=== PATIENT | female | born 1970 ===

== ENCOUNTER 2023-06-09 11:43 | Day surgery (SDC) | payer OTHER ==
[~2023-06-09 11:43] MED LIST: BETAPACE120 MG PO; FARXIGA10 MG PO; GLUMETZA1000 MG PO; GRALISE600 MG PO; KAPSPARGO SPRI100 MG PO; LANOXIN125 MCG PO; LASIX40 MG PO; LEVOTHYROXINE25 MC2 PO; LIPITOR40 M1 PO; LOREEV XR2 MG PO; RIZATRIPTAN10 M1 PO
[2023-06-09] MEDS ORDERED: PERCOCET 5-3251 EACH PO (14:41)
[2023-06-09] MEDS ORDERED: NEURONTIN300 MG PO (14:41)
[2023-06-09] MEDS ORDERED: COLACE100 MG PO (14:41)
== END 2023-06-09 18:25 | disposition home or self-care (01) ==
LOC: CIR.AMB 11:43
PROVIDERS: ATTEND Surgery
DX: K62.5 Hemorrhage of anus and rectum (principal); K64.2 Third degree hemorrhoids; K64.4 Residual hemorrhoidal skin tags; K62.89 Other specified diseases of anus and rectum; D64.9 Anemia, unspecified; Z20.822 Contact with and (suspected) exposure to COVID-19; I10 Essential (primary) hypertension